=== PATIENT | female | born 1965 | race Caucasian/White ===

== ENCOUNTER → 2020-03-07 | Outpatient (CLI) | payer OTHER ==
--- NOTE | 2020-03-07 12:01 | Diagnostic Imaging Report ---
PROCEDURE: CT head without contrast. TECHNIQUE: Multiple contiguous axial images were obtained through the brain without the use of intravenous contrast. Auto Exposure Controls were utilized during the CT exam to meet ALARA standards for radiation dose reduction. INDICATION: Fall at work three days ago, complaining of headache and light sensitivity. COMPARISON: No prior studies are available for comparison. 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 Ventricles and sulci are within normal limits. There is no sulcal effacement or midline shift. No acute intra-axial or extra-axial hemorrhage is detected. Cisterns are patent. Visualized paranasal sinuses are clear apart from a small mucous retention cyst or polyp in left maxillary sinus. IMPRESSION: Chronic changes in the left frontal lobe. No acute intracranial process is detected. Dictated by: Dictated on workstation # [id number]
== END ==
LOC: RAD FS 11:35
PROVIDERS: ATTEND Family Medicine
DX: S09.90XD Unspecified injury of head, subsequent encounter (principal); G93.89 Other specified disorders of brain; W19.XXXD Unspecified fall, subsequent encounter
CPT/HCPCS: 70450